=== PATIENT | male | born 1975 | race Native Hawaiian/Other Pacific Islander ===

== ENCOUNTER 2019-11-13 23:52 | Emergency (ER) | payer OTHER ==
[~2019-11-13] VITALS: Ht 175.3 cm; Wt 81.6 kg
[2019-11-14 01:10] VITALS: BP 161/109; TEMP 99.4
== END 2019-11-14 01:10 | disposition home or self-care (01) ==
LOC: ED 23:52
PROC: 09900ZZ Drainage of Right External Ear, Open Approach (ICD-10-PCS; principal; 2019-11-13)
DX: H60.11 Cellulitis of right external ear (principal)
CPT/HCPCS: 87070; 87205; 96372; 99283; J0690

== ENCOUNTER 2020-07-21 02:50 | Emergency (ER) | payer OTHER ==
[~2020-07-21] VITALS: Ht 175.3 cm; Wt 88.0 kg
[2020-07-21 03:48] VITALS: BP 144/93; TEMP 98.2
== END 2020-07-21 03:48 | disposition home or self-care (01) ==
LOC: ED 02:50
PROC: 0HQFXZZ Repair Right Hand Skin, External Approach (ICD-10-PCS; principal; 2020-07-21)
DX: S61.212A Laceration without foreign body of right middle finger without damage to nail, initial encounter (principal); W26.0XXA Contact with knife, initial encounter; Y92.89 Other specified places as the place of occurrence of the external cause
CPT/HCPCS: 99282; 99283

== ENCOUNTER 2022-01-06 22:53 | Emergency (ER) | payer OTHER ==
[~2022-01-06] VITALS: Ht 175.3 cm; Wt 81.6 kg
[2022-01-06 22:55] VITALS: BP 164/104; TEMP 98.4
== END 2022-01-07 | disposition home or self-care (01) ==
LOC: ED 22:53
PROC: 0KQ90ZZ Repair Right Lower Arm and Wrist Muscle, Open Approach (ICD-10-PCS; principal; 2022-01-06)
DX: S51.811A Laceration without foreign body of right forearm, initial encounter (principal); S56.221A Laceration of other flexor muscle, fascia and tendon at forearm level, right arm, initial encounter; W26.0XXA Contact with knife, initial encounter; Y92.89 Other specified places as the place of occurrence of the external cause
CPT/HCPCS: 90715; 99283; J2001